=== PATIENT | male | born 1990 | race Caucasian/White ===

== ENCOUNTER 2020-01-20 12:24 | Emergency (ER) | payer MEDICAID ==
[~2020-01-20] VITALS: Ht 180.3 cm; Wt 109.1 kg
[2020-01-20 12:41] VITALS: Ht 180.3 cm; Wt 109.1 kg
[2020-01-20 13:50] VITALS: BP 159/93
[2020-01-21 08:10] LABS: HEPATITIS C ANTIBODY >11.0 S/CO RAT (0.0-0.9)
== END 2020-01-20 13:52 | disposition home or self-care (01) ==
LOC: D.ER 12:24
PROVIDERS: Family Medicine
DX: B19.20 Unspecified viral hepatitis C without hepatic coma (principal)

== ENCOUNTER → 2020-02-15 22:15 | Outpatient (CLI) | payer MEDICAID ==
[2020-01-20 12:41] VITALS: BMI 33.5
[2020-02-16 01:23] LABS: HEMATOCRIT 46.3 % (42.0-54.0); HEMOGLOBIN 15.6 g/dL (13.5-17.5); MCH 30.9 pg (26.0-34.0); MCHC 33.7 g/dL (31.0-37.0); MCV 91.7 fL (80.0-100.0); PLATELET COUNT 248 10x3/uL (130-400); RBC 5.05 10x6/uL (4.20-6.10); RDW 12.6 % (11.5-14.5); WBC 6.3 10x3/uL (4.8-10.8)
[2020-02-16 01:34] LABS: ALKALINE PHOSPHATASE 134 U/L (30-120); ALT (SGPT) 206 U/L (10-68); BILIRUBIN - TOTAL 0.24 mg/dL (0.2-1.3); CALC OSMOLALITY 279 mosm/kg (275-300); CALCIUM 8.9 mg/dL (8.5-10.1); CARBON DIOXIDE 26.7 mmol/L (21.0-32.0); CHLORIDE - SERUM 105 mmol/L (98-107); CREATININE - SERUM 1.1 mg/dL (0.6-1.3); GLUCOSE 106 mg/dL (74-106); POTASSIUM - SERUM 4.1 mmol/L (3.5-5.1); PROTEIN - SERUM 7.6 g/dL (6.4-8.2); SODIUM 140 mmol/L (136-145); UREA NITROGEN 14 mg/dL (7-18); eGFR NON AFRICAN AMERICAN 84 mL/min (90-120)
[2020-02-16 09:24] LABS: EOSINOPHILS 5 % (0-7); LYMPHOCYTES 34 % (15-50); MONOCYTES 9 % (2-11); NEUTROPHILS 52 % (40-80); PLATELET ESTIMATE NORMAL; ROULEAUX OCC; SMUDGE CELLS OCC
== END | disposition home or self-care (01) ==
LOC: D.LABREF 22:15
PROVIDERS: ATTEND Legal Medicine
DX: K58.2 Mixed irritable bowel syndrome (principal); F32.0 Major depressive disorder, single episode, mild

== ENCOUNTER → 2020-02-18 10:04 | Outpatient (CLI) | payer MEDICAID ==
[2020-01-20 12:41] VITALS: BMI 33.5
== END | disposition home or self-care (01) ==
LOC: D.US 10:04
PROVIDERS: ATTEND Emergency Medicine
DX: R10.9 Unspecified abdominal pain (principal); B19.20 Unspecified viral hepatitis C without hepatic coma

== ENCOUNTER 2020-04-03 13:26 | Emergency (ER) | payer MEDICAID ==
[~2020-04-03] VITALS: Ht 180.3 cm; Wt 111.4 kg
[2020-04-03 13:34] VITALS: Ht 180.3 cm; Wt 111.4 kg
[2020-04-03] MEDS ORDERED: CYCLOBENZAPRINE10 MG PO (14:38)
[2020-04-03] MEDS ORDERED: MEDROL DOSE PACK4 MG PO (14:38)
[2020-04-03 15:06] VITALS: BP 139/83
== END 2020-04-03 15:06 | disposition home or self-care (01) ==
LOC: D.ER 13:26
DX: M54.5 Low back pain (principal)

== ENCOUNTER 2020-05-17 13:09 | Emergency (ER) | payer MEDICAID ==
[~2020-05-17] VITALS: Ht 180.3 cm; Wt 111.8 kg
[~2020-05-17 13:09] MED LIST: CYCLOBENZAPRINE10 MG PO; MEDROL DOSE PACK4 MG PO
[2020-05-17 13:14] VITALS: Ht 180.3 cm; Wt 111.8 kg
[2020-05-17] MEDS ORDERED: LIORESAL 10 MG10 MG PO (13:43)
[2020-05-17] MEDS ORDERED: DICLOFENAC SODI50 MG PO (13:43)
[2020-05-17] MEDS ORDERED: STERAPRED DS 1010 MG PO (13:43)
[2020-05-17 14:53] VITALS: BP 136/78
== END 2020-05-17 14:53 | disposition home or self-care (01) ==
LOC: D.ER 13:09
DX: R51 Headache (principal); M50.30 Other cervical disc degeneration, unspecified cervical region